=== PATIENT | male | born 1965 | race Caucasian/White ===

== ENCOUNTER 2017-01-17 05:37 | Outpatient (CLI) | payer BC ==
[~2017-01-17] VITALS: Ht 188 cm; Wt 106.6 kg
[~2017-01-17 05:37] MED LIST: ATOR20TA66 PO
[2017-01-17] MEDS ORDERED: OMG1KC PO (14:24)
[2017-01-19] MEDS ORDERED: PANT40TA2 PO (12:51)
== END 2017-01-17 14:27 ==
LOC: PREOP 05:37
PROVIDERS: ATTEND Surgery Pediatric Surgery
DX: Z01.818 Encounter for other preprocedural examination (principal); Z12.11 Encounter for screening for malignant neoplasm of colon; K21.9 Gastro-esophageal reflux disease without esophagitis

== ENCOUNTER 2017-01-19 10:55 | Day surgery (SDC) | payer BC ==
[~2017-01-19] VITALS: Ht 188 cm; Wt 106.6 kg
[~2017-01-19 10:55] MED LIST changes: +OMG1KC PO
[2017-01-19] MEDS ORDERED: LIDOCAINE JELLY 2% (XYLOCAINE) 5 ML TUBE ONE (11:27)
[2017-01-19 11:28] VITALS: BP 146/90
[2017-01-19] MEDS ORDERED: fentaNYL INJECTION 100 MCG/2 ML AMP ONE ×2 (11:28)
[2017-01-19] MEDS ORDERED: MIDAZOLAM 2 MG/2 ML (VERSED) VIAL ONE ×5 (11:28)
[2017-01-19] MEDS ORDERED: HURRICAINE EXT TUBE (BENZOCAINE) XX PRN (11:30)
[2017-01-19] MEDS ORDERED: FLUMAZENIL (ROMAZICON) 0.1 MG/ML 5 ML VIAL INJ PRN (11:30)
[2017-01-19] MEDS ORDERED: NALOXONE 0.4 MG/ML 1 ML (NARCAN) VIAL IVP PRN (11:30)
[2017-01-19] MEDS ORDERED: LIDOCAINE JELLY 2% (XYLOCAINE) 5 ML TUBE MM PRN (11:30)
[2017-01-19] MEDS ORDERED: NS IV 500 ML 500 ML IV PRN (11:30)
[2017-01-19] MEDS: MIDAZOLAM 2 MG/2 ML (VERSED) VIAL IVP PRN ×5 (12:00→12:25)
[2017-01-19] MEDS: fentaNYL INJECTION 100 MCG/2 ML AMP IVP PRN ×4 (12:01→12:24)
--- NOTE | 2017-01-19 12:48 | Conscious Sedation/ASA ---
Conscious Sedation Pre-Proced Time Reviewed: 11:20 ASA Class: 2 Airway Mallampati Classification: (north fork appropriate class) I. II. III, IV Lungs Heart ASA score ASA 1: a normal healthy patient ASA 2: a patient with a mild systemic disease (mid diabetes, controlled hypertension, obesity ASA 3: a patient with a severe systemic disease that limits activity (angina , COPD, prior Myocardial infarction) ASA 4: a patient with an incapacitating disease that is a constant threat to life (CHF, renal failure) ASA 5: a moribund patient not expected to survive 24 hrs. (ruptured aneurysm) ASA 6: a declared brain patient whose organs are being harvested. For emergent operations, add the letter E after the classification Grade 2 Sedation Plan: Analgesia, Amnesia, Plan communicated to team members, Discussed options with patient/fam, Discussed risks with patient/fam Note The patient is an appropriate candidate to undergo the planned procedure, sedation, and anesthesia. The patient immediately re-assessed prior to indication. LAMAR ROBB MD January 19, 2017 12:48 pm
--- NOTE | 2017-01-19 12:48 | Progress Note-Pre Operative ---
Pre-Operative Progress Note H&P Reviewed The H&P was reviewed, patient examined and no changes noted. Date H&P Reviewed: January 19, 2017 Time H&P Reviewed: 11:20 Pre-Operative Diagnosis: GERD, family hx colon cancer LAMAR ROBB MD January 19, 2017 12:48 pm
--- NOTE | 2017-01-19 12:50 | Progress Note-Post Operative ---
Post-Operative Progess Note Surgeon (s)/Stereoplotter Operator (s) Surgeon LAMAR ROBB MD Stereoplotter Operator: none Pre-Operative Diagnosis GERD, family hx colon cancer Post-Operative Diagnosis reflux esophagitis(class B), small HH(<1.5cm), mild-moderate gastritis. chronic stage 2 ext and int hemorrhoids. Procedure & Operative Findings Date of Procedure 01/19/17 Procedure Preformed/Findings EGD with bx. Colonoscopy. Anesthesia Type CS Estimated Blood Loss Estimated blood loss (mL): minimal Specimens/Packing Specimens Removed GE jxn, antrum Packing: none LAMAR ROBB MD January 19, 2017 12:50 pm
[2017-01-19] MEDS ORDERED: PANT40TA2 PO (12:51)
--- NOTE | 2017-01-19 12:52 | Discharge Inst-Surgical ---
D/C Lap Instructions-CLARISSE Follow Up 5 years Activity as tolerated High Fiber Diet 25g or more per day Avoid Alcohol, Caffeine, Spicy [place] and Acid foods. Drink 64 fluid oz or more of fluids per day. Symptoms to Report: Fever over 101 degree F, Nausea/Vomiting If any problems/questions: Contact your physician or go to Emergency Room LAMAR ROBB MD January 19, 2017 12:52 pm
[2017-01-19 12:55] VITALS: BP 148/84
[2017-01-19] MEDS ORDERED: HYDROcodone/APAP 5 MG/325 MG (LORTAB) TAB PO PRN (13:00)
[2017-01-19] MEDS ORDERED: ONDANSETRON 4 MG/2 ML (SDV) Z0FRAN IV PRN (13:00)
[2017-01-19] MEDS ORDERED: ACETAMINOPHEN 325 MG TABLET/CAPLET (TYLENOL) PO PRN (13:00)
[2017-01-19] MEDS ORDERED: morphine INJ 10 MG/ML 1ML (SYR OR VIAL) IV PRN (13:00)
[2017-01-19 13:25] VITALS: BP 135/82
[2017-01-19 13:38] VITALS: BP 135/82
--- NOTE | 2017-01-20 14:19 | OPERATIVE REPORT ---
DATE OF SERVICE: 01/19/2017 ATTENDING PHYSICIAN: Dr. Chaudhary PREOPERATIVE DIAGNOSES: Screening colonoscopy, family history of colon cancer, gastroesophageal reflux disease. POSTOPERATIVE DIAGNOSES: Reflux esophagitis class B, small hiatal hernia, less than 1 cm in size, mild to moderate gastritis, chronic stage II external and internal hemorrhoids. The remainder of the colon and rectum were normal. PROCEDURES: EGD with biopsy, colonoscopy. SURGEON: Lamar Robb MD ANESTHESIA: Conscious sedation. ESTIMATED BLOOD LOSS: Minimal. FINDINGS: EGD: Reflux esophagitis class B, small hiatal hernia, less than 1 cm in size, mild to moderate gastritis, no formal ulcers or polyps. Pylorus and duodenum appeared normal. Colonoscopy: Chronic stage II external and internal hemorrhoids. Prostate gland was palpable and appeared normal. Remainder of the rectum and colon were normal. There were no polyps or any neoplasms identified. DISPOSITION: The patient tolerated the procedure well. INDICATIONS: The patient is a 51-year-old male in need of a colonoscopy. He has not had a colonoscopy up to this point in his life. He also does have a family history of colon cancer with his mother being diagnosed with the disease at around 70 years of age. He does not report any major issues of diarrhea nor constipation, as well as no red blood per rectum nor any dark tarry stools. He does report a history of gastroesophageal reflux disease which has worsened as he has grown older. He reports epigastric burning sensation usually at night and will regurgitate a tart-tasting fluid on an intermittent basis. DESCRIPTION OF PROCEDURE: The patient was brought to the endoscopy suite, laid in the left lateral decubitus position. After adequate IV pain and sedative medications and conscious sedation anesthesia, the mouthpiece was applied. The endoscope was placed in the mouth, visualizing the pharynx and hypopharyngeal region. The vocal cords, epiglottis and vallecula identified and appeared to be normal. The endoscope was then gently intubated at the esophageal opening, and esophagus insufflated. The endoscope was then advanced to the 1st, 2nd and 3rd portions of the esophagus. At the level of the GE junction, a reflux esophagitis class B identified. There were no ulcers or strictures identified in this region. A biopsy was taken with forceps with visualization of good hemostasis. The endoscope was then easily advanced in the stomach. The endoscope retroflexed, visualizing a small hiatal hernia, less than 1 cm in size. There was a mild to moderate gastritis towards the lower half of the stomach. There were no formal ulcers, polyps or any neoplasms identified. A biopsy was taken of the antrum with visualization of good hemostasis. The endoscope was then advanced to the pylorus and the 1st and 2nd portions of the duodenum, which appeared normal. The endoscope was then slowly withdrawn, taking a second look and suctioning of residual air with no additional findings. The patient tolerated this portion of the procedure well. For his reflux esophagitis, gastritis and small hiatal hernia, we will recommend the necessary lifestyle and diet accommodation including small and more frequent meals, avoidance of eating at night, as well as head elevation while lying supine. He also needs to avoid caffeinated beverages, spicy, greasy and acidic foods. Under the same conscious sedation anesthesia, we then proceeded with the colonoscopy portion of the procedure. A digital rectal examination was performed which revealed chronic stage II external and internal hemorrhoids which were not actively edematous or inflamed and no bleeding. Normal sphincter tone was felt, and there were no palpable masses. The prostate gland was palpable and appeared normal. The endoscope was then intubated to the anus and rectum and gently insufflated. The endoscope was then advanced to the valves of Barr of the rectum with no polyps or any neoplasms identified. We then proceeded through the sigmoid colon where no diverticulosis identified. The endoscope was then advanced to the remainder of the descending, transverse and ascending colon of the cecum. These segments were normal. There were no polyps or any neoplasms identified throughout the colon or rectum. The endoscope was then slowly withdrawn, taking a second look and suctioning of residual air with no additional findings. The patient tolerated the procedure well. We will have him continue with medical management with a high fiber diet with at least 30 grams of fiber per day, as well as at least 64 fluid ounces of water daily to promote soft stools on a daily basis. We will recommend a followup colonoscopy in 5 years due to his family history of colon cancer. Job ID: [id number] DocumentID: [id number] Dictated Date: 01/19/2017 12:43:58 Busher Helper Date: 01/20/2017 14:18:25 Dictated By: LAMAR ROBB MD
== END 2017-01-19 13:40 | disposition home or self-care (01) ==
LOC: ENDO 10:55
PROVIDERS: ATTEND Surgery Pediatric Surgery
DX: Z12.11 Encounter for screening for malignant neoplasm of colon (principal); K64.1 Second degree hemorrhoids; K21.0 Gastro-esophageal reflux disease with esophagitis; K44.9 Diaphragmatic hernia without obstruction or gangrene; K29.70 Gastritis, unspecified, without bleeding; Z80.0 Family history of malignant neoplasm of digestive organs

== ENCOUNTER → 2020-08-04 | Outpatient (CLI) | payer BC ==
[~2020-08-04] MED LIST changes: +PANT40TA2 PO
--- NOTE | 2020-08-04 10:20 | Diagnostic Imaging Report ---
PROCEDURE: US carotid duplex, bilateral. TECHNIQUE: Multiple real-time grayscale images were obtained over the carotid arteries in various projections, bilaterally. Additional spectral analysis and color Doppler duplex images were also obtained. INDICATION: Carotid occlusive disease. FINDINGS: There are no focally elevated velocities in either internal carotid artery. The ICA/CCA ratios are within normal limits, bilaterally. There is antegrade flow in the vertebral arteries, bilaterally. Grayscale images demonstrate minimal carotid plaque, bilaterally. IMPRESSION: Minimal bilateral carotid plaque however spectral analysis shows no evidence of a hemodynamically significant stenosis in either internal carotid artery. Parameters based on the consensus panel Ortega-Scale and Doppler ultrasound criteria published July 2003, Radiology, Volume 229. DOPPLER (peak systolic velocity M/S Right Left CCA 0.98 1.10 ICA Proximal 0.66 0.89 ICA Mid 0.77 0.77 ICA Distal 0.90 0.94 RATIO 0.92 0.89 ECA 1.14 1.21 VERT 0.73 0.42 Dictated by: Dictated on workstation # [id number]
== END ==
LOC: RAD 09:00
PROVIDERS: ATTEND Internal Medicine
DX: I65.29 Occlusion and stenosis of unspecified carotid artery (principal)
CPT/HCPCS: 93880

== ENCOUNTER 2022-02-02 05:41 | Outpatient (CLI) | payer BC ==
[~2022-02-02] VITALS: Ht 185.4 cm; Wt 111.1 kg
[2022-02-02] MEDS ORDERED: ATOR20TA66 PO (11:36)
== END 2022-02-02 11:45 | disposition home or self-care (01) ==
LOC: PREOP 05:41
PROVIDERS: ATTEND Surgery
DX: Z01.818 Encounter for other preprocedural examination (principal)

== ENCOUNTER 2022-02-10 10:50 | Day surgery (SDC) | payer BC ==
--- NOTE | 2022-02-07 09:38 | HISTORY AND PHYSICAL ---
DATE OF SERVICE: ATTENDING PRIMARY CARE PHYSICIAN: Dr. Rhaul Chaudhary. PROCEDURE DATE: 02/10/2022. HISTORY OF PRESENT ILLNESS: The patient is a 57-year-old male who is known to us. He was seen in 08/2020 for right upper quadrant abdominal pain that would radiate towards his back that was associated with eating foods. He did not report any nausea or vomiting. Over time, this became worse and more frequent, and he did undergo an ultrasound, which did show gallstones at that time. He also reported a palpable lesion along the left lateral abdomen, which had been around for several years now grown larger in size, become painful. He was found to have a subcutaneous lipoma at that time. On 09/06/2020, he underwent a laparoscopic cholecystectomy and excision of subcutaneous lipoma that was 2 cm in size. On today's visit, he reports that he is in need of a screening colonoscopy. His last colonoscopy was 5 years ago. He does report a family history of colon cancer with his mother having the disease. He denies any blood in his stool as well as no diarrhea, constipation or any abdominal pain. PAST MEDICAL HISTORY: Hypercholesterolemia. PAST SURGICAL HISTORY: Bilateral carpal tunnel release, left inguinal hernia repair, right inguinal hernia repair, laparoscopic cholecystectomy and excision of lipoma 09/06/2020. ALLERGIES: No known drug allergies. MEDICATIONS: Simvastatin, fish oil, vitamin C, vitamin D3. SOCIAL HISTORY: Negative for tobacco. Negative for alcohol. FAMILY HISTORY: Mother, colon cancer. VITAL SIGNS: Blood pressure is 157/74. Current weight is 253 pounds at 6 feet 1 inches. REVIEW OF SYSTEMS: Well-nourished male in no acute distress. He is not experiencing any shortness of breath or difficulty breathing. No chest pain, palpitations or diaphoresis. No nausea, vomiting or abdominal pain. No diarrhea or constipation. No red blood per rectum. No dark tarry stools. No fever or chills. No recent inadvertent weight loss. All other review of systems negative. PHYSICAL EXAMINATION: CHEST: Clear. Good breath sounds bilaterally. HEART: Regular, no murmurs. EXTREMITIES: No lower extremity edema. Negative Homans sign. HEENT: No scleral icterus. NECK: No cervical lymphadenopathy. ABDOMEN: Soft, nontender, nondistended. SKIN: Warm, dry and pink. NEUROLOGIC: Awake, alert and oriented x3. ASSESSMENT AND PLAN: A 57-year-old male with a family history of colon cancer with his mother having the disease who is in need of a screening colonoscopy. At this time, we will proceed with scheduling him for a screening colonoscopy. Job ID: [id number] DocumentID: [id number] Dictated Date: 02/07/2022 09:02:21 Pressurizer Date: 02/07/2022 09:37:47 Dictated By: ARTURO VILLASEÑOR APRN
[~2022-02-10] VITALS: Ht 185 cm; Wt 111.1 kg
[2022-02-10] MEDS ORDERED: LACTATED RINGERS 1,000 ML IV STA (11:09)
[2022-02-10 11:15] VITALS: BP 149/73
[2022-02-10] MEDS ORDERED: LIDOCAINE JELLY 2% 6 ML SYRINGE MM PRN (11:15)
--- NOTE | 2022-02-10 12:12 | Discharge Inst-Surgical ---
D/C Lap Instructions-CLARISSE Follow Up Activity as tolerated High Fiber Diet 25g or more per day Avoid Alcohol, Caffeine, Spicy [place] and Acid foods. Drink 64 fluid oz or more of fluids per day. Symptoms to Report: Fever over 101 degree F, Nausea/Vomiting If any problems/questions: Contact your physician or go to Emergency Room LAMAR ROBB MD Feb 10, 2022 12:12
--- NOTE | 2022-02-10 12:12 | Progress Note-Pre Operative ---
Pre-Operative Progress Note H&P Reviewed The H&P was reviewed, patient examined and no changes noted. Date Seen by Provider: Feb 10, 2022 Time Seen by Provider: 12:00 Date H&P Reviewed: Feb 10, 2022 Time H&P Reviewed: 12:00 Pre-Operative Diagnosis: screening, family hx LAMAR ROBB MD Feb 10, 2022 12:11
[2022-02-10] MEDS ORDERED: ONDANSETRON 4 MG/2 ML (SDV) Z0FRAN IVP PRN (12:15)
[2022-02-10] MEDS ORDERED: ONDANSETRON 4 MG (ZOFRAN) ORAL DISSOLVE TAB PO PRN (12:15)
[2022-02-10] MEDS ORDERED: PROPOFOL INJECTION 50 ML IV ONE ×2 (12:16→13:12)
[2022-02-10 13:26] VITALS: BP 119/54
--- NOTE | 2022-02-10 13:37 | Progress Note-Post Operative ---
Post-Operative Progess Note Surgeon (s)/Hat Brim And Crown Laminating Operator (s) Surgeon LAMAR ROBB MD Hat Brim And Crown Laminating Operator: none Pre-Operative Diagnosis screening, family hx, GERD Post-Operative Diagnosis reflux esophagitis(grade B), moderate gastritis. Procedure & Operative Findings Date of Procedure 02/10/22 Procedure Performed/Findings EGD with bx. colonoscopy Anesthesia Type mac Estimated Blood Loss Estimated blood loss (mL): minimal Specimens/Packing Specimens Removed ge jxn, antrum LAMAR ROBB MD Feb 10, 2022 13:37
[2022-02-10 13:43] VITALS: BP 118/97
--- NOTE | 2022-02-10 14:34 | Anesthesia-General Post-Op ---
MAC Patient Condition Mental Status/LOC: Same as Preop Cardiovascular: Satisfactory Nausea/Vomiting: Absent Respiratory: Satisfactory Pain: Controlled Complications: Absent Post Op Complications Complications None Follow Up Care/Instructions Patient Instructions None needed. Anesthesiology Discharge Order Discharge Order Patient is doing well, no complaints, stable vital signs, no apparent adverse anesthesia problems. No complications reported per nursing. SHANNAN CARRASCO CRNA Feb 10, 2022 14:34
--- NOTE | 2022-02-11 00:17 | OPERATIVE REPORT ---
DATE OF SERVICE: 02/10/2022 ATTENDING PRIMARY CARE PHYSICIAN: Dr. Rahul Chaudhary. PREOPERATIVE DIAGNOSES: Screening colonoscopy with family history of colon cancer, gastroesophageal reflux disease. POSTOPERATIVE DIAGNOSES: Reflux esophagitis, [place] grade B, moderate severity gastritis, mild chronic stage II external and internal hemorrhoids. Remainder of the colon and rectum were normal. PROCEDURE: EGD with biopsy, colonoscopy. SURGEON: Lamar Robb MD ANESTHESIA: Monitored anesthesia care. ESTIMATED BLOOD LOSS: Minimal. FINDINGS: Reflux esophagitis, [place] grade B, moderate severity gastritis, mild chronic stage II external and internal hemorrhoids. Remainder of the colon and rectum were normal. DISPOSITION: The patient tolerated the procedure well. INDICATIONS: The patient is a 57-year-old male in need of a screening colonoscopy. His last colonoscopy was approximately 5 years ago and states that he is otherwise doing well with no major issues with diarrhea nor constipation as well as no red blood per rectum nor any dark tarry stools. He does have a first-degree family history of colon cancer; however. He also does have a history of gastroesophageal reflux disease and states that he does take Protonix on an intermittent basis; however, this has been worsening in recent months. DESCRIPTION OF PROCEDURE: The patient was brought to the endoscopy suite, laid in left lateral decubitus position. After adequate IV pain and sedative medications and monitored anesthesia care, the mouthpiece was applied. The endoscope was then placed in the mouth, visualized the pharynx hypopharyngeal region. Vocal cords, epiglottis and vallecula identified and appeared to be normal. The endoscope was gently intubated the esophageal opening and esophagus insufflated. The endoscope was then advanced to the first, second and third portion of esophagus at the level of the GE junction, reflux esophagitis, [place] grade B identified. No ulcers or strictures identified in this region. A biopsy was taken with forceps with visualization of good hemostasis. The endoscope was then advanced into the stomach and endoscope retroflexed, visualizing no significant hiatal hernia. There was a moderate severity gastritis more towards the stomach antrum. No formal ulcerations, polyps, or any neoplasms. A biopsy was taken with forceps with visualization of good hemostasis. The endoscope was then advanced through the pylorus and the first and second portion of the duodenum, which appeared normal with no ulcerations or any distal obstructions. The endoscope was then slowly withdrawn while taking a second look and suctioning of residual air with no additional findings. A digital rectal examination was performed, which revealed chronic stage II external and internal hemorrhoids, not actively edematous nor inflamed and no bleeding. Normal sphincter tone was felt and there were no palpable masses. Prostate gland was palpable and appeared normal. The endoscope was then intubated into the anus and rectum gently insufflated. The endoscope was then advanced to the valves of Barr of the rectum with no polyps or any neoplasms identified. Through the sigmoid colon, no diverticulosis identified. The endoscope was then advanced to the remainder of the descending, transverse and ascending colon to the cecum. These segments were normal. There were no polyps or any neoplasms identified throughout the colon or rectum. The endoscope was then slowly withdrawn while taking a second look and suctioning of residual air with no additional findings. The patient tolerated the procedure well. We will recommend the necessary lifestyle and dietary accommodation including small and more frequent meals, avoiding to eating at night as well as head elevation while lying supine. He also needs to avoid caffeinated beverages, spicy, greasy and acidic foods and we will also recommend that he continue with Protonix 40 mg daily. We will also recommend that he continue with a high fiber diet with at least 30 grams of fiber daily as well as significant amounts of water to promote soft stools on a daily basis. Due to his first-degree family history of colon cancer, we will recommend a followup colonoscopy in 5 years. Job ID: [id number] DocumentID: [id number] Dictated Date: 02/10/2022 13:43:19 Administrative Manager Date: 02/11/2022 00:16:46 Dictated By: LAMAR ROBB MD
== END 2022-02-10 14:00 | disposition home or self-care (01) ==
LOC: ENDO 10:50
PROVIDERS: ATTEND Surgery
DX: Z12.11 Encounter for screening for malignant neoplasm of colon (principal); K21.00 Gastro-esophageal reflux disease with esophagitis, without bleeding; K29.70 Gastritis, unspecified, without bleeding; K64.1 Second degree hemorrhoids; K64.4 Residual hemorrhoidal skin tags; Z80.0 Family history of malignant neoplasm of digestive organs

== ENCOUNTER → 2023-07-31 | Outpatient (CLI) | payer BC ==
--- NOTE | 2023-07-31 09:07 | Diagnostic Imaging Report ---
PROCEDURE: US Thyroid. TECHNIQUE: Multiple real-time grayscale images were obtained of the thyroid in various projections. INDICATION: Thyroid nodule. COMPARISON: None. FINDINGS: Both thyroid lobes demonstrate smooth and homogenous echotexture. There are no focal lesions seen. Color flow Doppler demonstrates normal and symmetric vascularity, bilaterally. The right lobe measures 4.9 x 2 x 1.9 cm, the left lobe measures 4.2 x 1.5 x 1.4 cm. The isthmus measures 4 mm. IMPRESSION: Unremarkable thyroid sonogram. Dictated by: Dictated on workstation # [id number]
== END ==
LOC: RAD 08:18
PROVIDERS: ATTEND Internal Medicine
DX: R94.6 Abnormal results of thyroid function studies (principal)
CPT/HCPCS: 76536